=== PATIENT | female | born 1950 | race Caucasian/White ===

== ENCOUNTER → 2018-03-01 | Outpatient (CLI) | payer MEDICARE ==
--- NOTE | 2018-03-02 10:23 | MM ---
Reason for exam: screening (asymptomatic). Last mammogram was performed 1 year and 1 month ago. History: Patient is postmenopausal, history of other cancer, and is nulliparous. Benign stereotactic core biopsy of the right breast, February 18, 2002. Core biopsy of the right breast. Physical Findings: A clinical breast exam by your physician is recommended on an annual basis and results should be correlated with mammographic findings. MG 3D Screening Mammo W/Cad Bilateral CC and MLO view(s) were taken. Prior study comparison: January 19, 2017, bilateral MG 3d screening mammo w/cad. September 12, 2015, bilateral MG screening mammo w CAD. The breast tissue is heterogeneously dense. This may lower the sensitivity of mammography. There are benign appearing round calcifications bilaterally. Previous mammotome biopsy in the right breast. There is chronic nodularity bilaterally. There is no discrete abnormality. ASSESSMENT: Benign, BI-RAD 2 RECOMMENDATION: Routine screening mammogram of both breasts in 1 year.
== END ==
LOC: RADMAMWWP 08:10
PROVIDERS: ATTEND Family Medicine
DX: Z12.31 Encounter for screening mammogram for malignant neoplasm of breast (principal)
CPT/HCPCS: 77063; 77067

== ENCOUNTER → 2018-05-21 | Outpatient (CLI) | payer MEDICARE ==
--- NOTE | 2018-05-23 12:21 | MR ---
EXAMINATION TYPE: MR ankle RT wo con DATE OF EXAM: 05/21/2018 COMPARISON: Outside radiographs 05/10/2018 HISTORY: 67-year-old female Pain in right ankle TECHNIQUE: Multiplanar, multisequence images of the right ankle were obtained without IV contrast. FINDINGS: Evaluation of the osseous structures shows degenerative subchondral marrow signal changes particularl y at the second TMT joint and within the medial-middle cuneiform articulation. There is advanced degenerative change along the medial talar dome with severe cartilage loss spanning 1.3 cm wide and 2.5 cm AP with irregularity of the underlying subchondral bony surface and extensive marrow edema and cystic change. These changes are concentrated on the talar side of the joint sugges ting possible osteochondral lesion as the etiology. There is soft tissue replacement in the sinus Tarsi. The tarsal tunnel is clear. Some slightly irregular but intact ATFL fibers are seen. PTFL remains intact and the CFL is visualize d. There is a split tear of the peroneal brevis tendon just below the lateral malleolus spanning 2.0 to 2.5 cm, refer to axial image 14 for patient representative image. Prominent tenosynovial fluid along the plan tar aspect of the peroneus longus which remains intact. Moderate tenosynovial fluid along the supramalleolar posterior tibial tendon and then again near the insertion. The distal posterior tibial tendon is markedly thickened. The adjacent proximal and mid fi bers of the superomedial spring ligament is heterogeneous with mild marrow signal changes at the calc aneal attachment site. The deep posterior fibers of the deltoid ligament appear intact. Some intrinsi c high signal is also noted within the inferolateral plantar longitudinal ligament of the spring liga ment complex. The syndesmosis appears intact. The anterior extensor tendons show no gross abnormality. Mild fusiform thickening of the middle third Achilles tendon measuring up to 9 mm. There is a moderat e-sized plantar calcaneal spur with mild thickening at the origin of the plantar fascia at 7 mm and s ome intrinsic 5 mm high signal change. IMPRESSION: 1. Large chronic osteochondral lesion of the medial talar dome measuring up to 1.3 cm wide and 2.5 cm AP. There is severe irregular cartilage loss and extensive underlying reactive marrow signal changes . 2. Midfoot osteoarthrosis particularly at the second TMT joint and medial-middle cuneiform articulati on. 3. 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 4. Mild to moderate sprains of the superomedial ligament and IPL of the spring ligament complex. Ther e is posterior tibial tenosynovitis and moderate to severe thickening of the posterior tibial tendon insertion. 5. Peroneal tenosynovitis with a 2.0 to 2.5 cm long split tear of the peroneus brevis at and just bel ow the lateral malleolus. 6. Chronic versus low-grade ATFL sprain. 7. Mild Achilles tendinosis of the middle third fibers. Moderate sized plantar calcaneal spur and thi ckening at the origin of the plantar fascia which may be seen in the setting of plantar fasciitis.
== END | disposition home or self-care (01) ==
LOC: RADMRIMAIN 14:36
PROVIDERS: ATTEND Orthopaedic Surgery
DX: M19.071 Primary osteoarthritis, right ankle and foot (principal); S93.491A Sprain of other ligament of right ankle, initial encounter; S96.811A Strain of other specified muscles and tendons at ankle and foot level, right foot, initial encounter; M94.8X7 Other specified disorders of cartilage, ankle and foot; M65.9 Synovitis and tenosynovitis, unspecified; M77.31 Calcaneal spur, right foot

== ENCOUNTER → 2019-05-02 | Outpatient (CLI) | payer MEDICARE ==
--- NOTE | 2019-05-03 10:44 | MM ---
Reason for exam: screening (asymptomatic). Last mammogram was performed 1 year and 2 months ago. History: Patient is postmenopausal, history of other cancer, and is nulliparous. Benign stereotactic core biopsy of the right breast, February 18, 2002. Core biopsy of the right breast. Physical Findings: A clinical breast exam by your physician is recommended on an annual basis and results should be correlated with mammographic findings. MG 3D Screening Mammo W/Cad Bilateral CC and MLO view(s) were taken. Prior study comparison: March 01, 2018, bilateral MG 3d screening mammo w/cad. January 19, 2017, bilateral MG 3d screening mammo w/cad. There are benign appearing round oval circumscribed bilateral masses greater in the left breast, waxing and waning over prior exams most mammographically compatible with cysts. Benign appearing bilateral calcifications. No suspicious abnormality. Right biopsy marker noted. No significant changes when compared with prior studies. ASSESSMENT: Benign, BI-RAD 2 RECOMMENDATION: Routine screening mammogram of both breasts in 1 year.
== END | disposition home or self-care (01) ==
LOC: RADMAMWWP 07:20
PROVIDERS: ATTEND Family Medicine
DX: Z12.31 Encounter for screening mammogram for malignant neoplasm of breast (principal)
CPT/HCPCS: 77063; 77067

== ENCOUNTER 2019-11-26 15:30 | Emergency (ER) | payer OTHER, MEDICARE ==
[2019-11-26 15:42] VITALS: TEMP 98.6
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
[2019-11-26 17:35] VITALS: BP 142/85; PULSE 77; RESP 18
== END 2019-11-26 17:45 | disposition home or self-care (01) ==
LOC: EC 15:30
DX: S81.812A Laceration without foreign body, left lower leg, initial encounter (principal); S81.811A Laceration without foreign body, right lower leg, initial encounter; Z53.29 Procedure and treatment not carried out because of patient's decision for other reasons; V89.2XXA Person injured in unspecified motor-vehicle accident, traffic, initial encounter; Y92.89 Other specified places as the place of occurrence of the external cause
CPT/HCPCS: 71046; 99284

== ENCOUNTER → 2020-05-07 | Outpatient (CLI) | payer MEDICARE ==
--- NOTE | 2020-05-08 08:51 | MM ---
Reason for exam: screening (asymptomatic). Last mammogram was performed 1 year ago. History: Patient is postmenopausal, has history of other cancer at age 64, and is nulliparous. Benign stereotactic core biopsy of the right breast, February 18, 2002. Core biopsy of the right breast. Physical Findings: A clinical breast exam by your physician is recommended on an annual basis and results should be correlated with mammographic findings. MG 3D Screening Mammo W/Cad Bilateral CC and MLO view(s) were taken. Prior study comparison: May 02, 2019, bilateral MG 3d screening mammo w/cad. March 01, 2018, bilateral MG 3d screening mammo w/cad. There are scattered fibroglandular densities. Previous mammotome biopsy in the right breast. There is chronic nodularity bilaterally. No significant changes when compared with prior studies. ASSESSMENT: Benign, BI-RAD 2 RECOMMENDATION: Routine screening mammogram of both breasts in 1 year.
== END | disposition home or self-care (01) ==
LOC: RADMAMWWP 07:07
PROVIDERS: ATTEND Family Medicine
DX: Z12.31 Encounter for screening mammogram for malignant neoplasm of breast (principal)
CPT/HCPCS: 77063; 77067

== ENCOUNTER → 2021-01-24 | Outpatient (CLI) | payer MEDICARE | END | disposition home or self-care (01) | LOC: LABPAT 10:16 | PROVIDERS: ATTEND Orthopaedic Surgery | DX: Z01.812 Encounter for preprocedural laboratory examination (principal); M17.12 Unilateral primary osteoarthritis, left knee; Z22.322 Carrier or suspected carrier of Methicillin resistant Staphylococcus aureus | CPT/HCPCS: 87070 ==

== ENCOUNTER 2021-02-19 11:06 | Day surgery (SDC) | payer MEDICARE ==
[2021-02-15 10:49] VITALS: BMI 44.8
--- NOTE | 2021-02-18 09:24 | HP ---
HISTORY AND PHYSICAL CHIEF COMPLAINT: Left knee pain. HISTORY OF PRESENT ILLNESS: The patient is a 70-year-old retired female who presents with left knee pain that has progressed over the past several years. She has medial and posterior pain along with swelling and stiffness. She notes the knee locks and danika on her. It bothers her with daily activities. She has tried previous medications in addition to injections and weight loss along with home exercise, without much relief. She notes significant limitation. PAST MEDICAL HISTORY: Significant for reflux disease and hypertension. PAST SURGICAL HISTORY: Significant for fixation of a wrist fracture along with hysterectomy. CURRENT MEDICATIONS: Prilosec, lisinopril. ALLERGIES: SHE DENIES DRUG ALLERGIES. FAMILY HISTORY: Significant for cancer. SOCIAL HISTORY: Negative for current tobacco or alcohol use. REVIEW OF SYSTEMS: Sixteen-point review of systems otherwise reviewed and is noncontributory. PHYSICAL EXAMINATION: The patient is approximately 5 feet 2 inches, 245 pounds of endomorphic habitus. HEENT exam is nonfocal. Neck is supple. She has painless passive motion of her left hip. Straight-leg raise is negative. Active motion of left knee minus 12 to 110 degrees of flexion. She has a mild effusion. She is tender about the medial joint line. Collaterals are stable. Pavel is negative. Marlen's is equivocal. She has genu varum alignment. She has an antalgic gait pattern. Her distal neurovascular exam appears intact in the left lower extremity. Weightbearing notch, lateral and Merchant views of the left knee obtained in the office show severe medial and patellofemoral compartment narrowing with [id number] changes and subchondral sclerosis. IMPRESSION: 1. Left knee severe medial and patellofemoral compartment osteoarthrosis. 2. Increased body mass index. RECOMMENDATIONS: I talked to the patient at length regarding her condition along with treatment options. At this point she remains quite symptomatic and limited because of pain related to her osteoarthrosis despite previous conservative measures. After thorough discussion, she opted to proceed with surgery. We will plan to proceed with left total knee arthroplasty. Risks and benefits were discussed at length in layman's terms. We will institute DVT prophylaxis postoperatively. MMODL / IJN: [id number] /
[~2021-02-19 11:06] MED LIST: ACETAMINOPHEN TAB 500 MG TAB PO PRN; DEXAMETHASONE SOD PHOSPHATE 4 MG/ML 1 ML VIAL IV ONE; HYDROmorphone 0.5 MG/0.5 ML SYRINGE IVP PRN; LIDOCAINE 1% (10MG/ML) FOR IV START INTRADERMA PRN; MELOXICAM 7.5 MG TAB PO PRN; ONDANSETRON 4 MG/2 ML VIAL IVP ONE; ROPIVACAINE/EPI/CLONIDINE/KET 50 ML SYRINGE MISCELLANE PRN; TRANEXAMIC ACID 1,000 MG in SODIUM CHLORIDE 0.9% 100 ML IVPB PRN
[2021-02-19] MEDS: LACTATED RINGERS 1,000 ML IV SCH ×2 (12:08→19:02)
[2021-02-19] MEDS ORDERED: fentaNYL (PF) 50 MCG/ML 2 ML AMP IVP ONE (12:23)
[2021-02-19] MEDS ORDERED: MIDAZOLAM 2 MG/2 ML VIAL IVP ONE (12:23)
[2021-02-19] MEDS ORDERED: ROPIVACAINE 5 MG/ML 30 ML VIAL ONE (12:53)
[2021-02-19] MEDS ORDERED: fentaNYL (PF) 50 MCG/ML 2 ML AMP ONE (12:53)
[2021-02-19] MEDS ORDERED: KETAMINE 10 MG/ML 20 ML VIAL ONE (12:53)
[2021-02-19] MEDS ORDERED: PROPOFOL 10 MG/ML 20 ML VIAL IV ONE (12:53)
[2021-02-19] MEDS ORDERED: SODIUM CHLORIDE 0.9% 100 ML BAG ONE (12:53)
[2021-02-19] MEDS ORDERED: TRANEXAMIC ACID 1,000 MG/10 ML VIAL ONE (12:53)
[2021-02-19] MEDS ORDERED: MIDAZOLAM 2 MG/2 ML VIAL ONE (12:53)
--- NOTE | 2021-02-19 12:54 | P.ANPRN ---
Procedure Note - Anesthesia - Nerve Block Performed Left Adductor Canal Infusion Date of Procedure: 02/19/21 Procedure Start Time: 12:22 Procedure Stop Time: 12:35 Location of Patient: PreOp Indication: Acute Post-Operative Pain, Requested by Surgeon Sedation Type: Sedate with meaningful contact maintained Preparation: Sterile Prep, Sterile Dressing Position: Supine Catheter: Indwelling Needle Types: Pajunk Needle Gauge: 21 Ultrasound used to visualize needle placement: Yes Ultrasound used to observe medication spread: Yes Blood Aspirated: No Pain Paresthesia on Injection Noted: No Resistance on Injection: Normal Image Stored and Saved: Yes Events: Uneventful and Well Tolerated (ropi .5% 20cc)
--- NOTE | 2021-02-19 12:55 | P.ANPRN ---
Procedure Note - Anesthesia - Nerve Block Performed Left iPack Single Time Out Performed: Yes Date of Procedure: 02/19/21 Procedure Start Time: 12:36 Procedure Stop Time: 12:39 Location of Patient: PreOp Indication: Acute Post-Operative Pain, Requested by Surgeon Sedation Type: Sedate with meaningful contact maintained Preparation: Sterile Prep Position: Supine Needle Types: Pajunk Needle Gauge: 21 Ultrasound used to visualize needle placement: Yes Ultrasound used to observe medication spread: Yes Blood Aspirated: No Pain Paresthesia on Injection Noted: No Resistance on Injection: Normal Image Stored and Saved: Yes Events: Uneventful and Well Tolerated (ropi .5% 20cc)
[2021-02-19] MEDS ORDERED: ceFAZolin 1,000 MG in SODIUM CHLORIDE 0.9% 1,000 ML IRRIGATION ONE (13:30)
[2021-02-19] MEDS ORDERED: LACTATED RINGERS 1,000 ML IV ONE (13:50)
[2021-02-19] MEDS ORDERED: NALOXONE 0.4 MG/ML 1 ML VIAL IV PRN (14:24)
[2021-02-19] MEDS ORDERED: HYDROcodone/APAP 5-325MG 1 EACH TAB PO PRN (14:24)
[2021-02-19] MEDS ORDERED: HYDROcodone/APAP 7.5-325MG 1 EACH TAB PO PRN (14:24)
[2021-02-19] MEDS ORDERED: MORPHINE SULFATE 2 MG/ML SYRINGE IVP PRN (14:24)
--- NOTE | 2021-02-19 14:57 | P.OP ---
Date of Procedure: 02/19/21 Preoperative Diagnosis: Left knee severe tricompartmental osteoarthrosis Postoperative Diagnosis: Same Procedure(s) Performed: Left total knee arthroplasty just cementedposterior stabilized Implants: Depuy Attune size 5 cemented femoral component, size 4 cemented tibial component, 9 mm articular surface, 32 mm cemented patellar component. This is a posterior stabilized implant. Anesthesia: regional, spinal Surgeon: Danny Payan Stone Cutter #1: Saravanan Michael Estimated Blood Loss (ml): 50 Pathology: other (Bone fragments) Condition: stable Disposition: PACU Indications for Procedure: Patient is a 70-year-old female who presents with progressive left knee pain secondary to osteoarthrosis despite conservative treatment. A discussion of the risks and benefits of operative intervention versus continued conservative me asures with patient. She opted to proceed with surgery. Operative risks to include infection, neurovascular injury, development of blood clots, possible component loosening/failure and need for subsequent procedures was discussed. Informed consent was obtained. Operative Findings: As below Description of Procedure: The patient was brought to the operating room, and after induction of spinal anesthesia the left lower extremity was prepped and draped in a normal fashion. The tourniquet was inflated to 270 mm marker. A longitudinal incision extending 3 finger breaths above the superior pole of patella extending to the medial aspect the tibial tubercle was then made. The skin and subcutaneous tissues were divided sharply. Electrocautery was used for hemostasis. A medial parapatellar arthrotomy was performed. The medial soft tissues to include the superficial and deep portions of the medial collateral ligament were elevated subperiosteally. The patella was everted. A portion of the retropatellar fat pad was excised sharply. The anterior cruciate ligament was sacrificed. Blunt retractors were placed. A starting hole was made in the distal femur 1 cm anterior to the posterior cruciate ligament origin. An intramedullary femoral guide was then inserted planning on 5 valgus distal cut with 9 mm distal resection. The cutting block was pinned in place. The distal cut was then made. The posterior referencing sizing guide was utilized. I felt size 5 was most appropriate. 3 of external rotation was built into the system and verified off the trans-epicondylar axis and the posterior condyles. The cutting block was pinned in place. The anterior, posterior, and chamfer cuts then made. Bone fragments were removed. The intercondylar guide was placed and the notch cut was made with a sagittal saw. The bone block was removed in one fragment. The trial component was then placed. There is good anterior to posterior and medial to lateral fit. The distal peg holes were drilled. The trial component was removed. Attention was then paid towards preparing the proximal femur. An extra medullary guide was utilized in line with the tibial shaft and second metatarsal distally. I planned on 2 mm resection from the medial compartment. The cutting block was pinned in place. The proximal tibial cut was then made. The bone was removed in one fragment. The remnants of the medial and lateral menisci were excised at the capsular junction with electrocautery. The tibia sized most appropriately at size 4. The trial femoral and tibial components were placed along with a 9 mm articular surface. I was able to obtain full flexion and extension with internal and external rotation. After several flexio n and extension cycles, the tibial rotation was marked with electrocautery line with the medial one third of the tibial tubercle. Attention was then paid towards preparing the patella. A patella reamer was utilized taking stem to 14 mm of bone stock. A good flush cut was made. The patella sized most appropriately 32 mm. The peg holes were drilled. The trial components placed. I had good patellofemoral tracking with no hands technique. The trial components were then removed. The tibia was prepared in the appropriate rotation with appropriate drill and keel punch. The posterior osteophytes were removed with a curved osteotome. The flexion and extension gaps were checked and felt to be symmetric at 9 mm. A trial components were then removed. The bony surfaces were prepared with pulsatile lavage and dried. The tibial component was then cemented place was fully seated. Excess cement was removed. The femoral component cemented place and was fully seated. Excess cement was removed. The trial 9 mm articular surface was placed and the knee was put in full extension. The patella component was cemented place. After the cement had sufficiently hardened, the knee was again taken through a range of motion. Again I was able to obtain full flexion and extension with varus and valgus stress. The trial 9 mm articular surface was removed and the final one inserted. This was fully seated. Care was taken to avoid any soft tissue interposition. Pulsatile lavage was again utilized. The medial parapatellar arthrotomy was closed with #2 Ethibond suture. The tourniquet was deflated with approximately 60 minutes total tourniquet time. Final hemostasis was obtained with the cautery. There was minimal bleeding therefore a deep drain was not placed. The subcutaneous tissues were reapproximated with interrupted 2-0 Vicryl sutures. The skin was reapproximated with 3-0 subcuticular strata fix suture. Skin tape and adhesive was applied. A sterile dressing was applied. The patient was awoken from sedation and transferred to recovery room in good condition. Blood loss was estimated at 50 mL. No complications were incurred. Sponge and needle counts were correct at the end of the case. Luis Daniel GLASGOW assisted during the major components of this case to include exposure, bone resection, implantation, and closure.
[2021-02-19] MEDS ORDERED: ROPIVACAINE 0.2%-NS ON-Q PUMP 1,090 MG, EMPTY PAIN BALL 1 EACH MISCELLANE PRN (15:03)
--- NOTE | 2021-02-19 15:47 | XR ---
EXAMINATION TYPE: XR knee limited LT DATE OF EXAM: 02/19/2021 CLINICAL HISTORY: Left knee pain and arthritis status post total knee replacement. TECHNIQUE: Portable AP and crosstable lateral views of the left knee are obtained immediately postop eratively. COMPARISON: Bilateral knee x-rays November 26, 2019 FINDINGS: Metallic hardware from total left knee arthroplasty is seen and appears satisfactory in al ignment and position. There is evidence of recent surgery with diffuse subcutaneous gas and soft tis jaqueline swelling noted. IMPRESSION: METALLIC HARDWARE FROM TOTAL LEFT KNEE ARTHROPLASTY IS SATISFACTORY IN ALIGNMENT.
[2021-02-19] MEDS ORDERED: SENNOSIDES-DOCUSATE SODIUM 1 EACH TAB PO SCH (21:00)
[2021-02-19] MEDS: ENOXAPARIN 30 MG/0.3 ML SYRINGE SQ SCH (22:17)
[2021-02-20 07:12] VITALS: RESP 17
[2021-02-20 07:46] LABS: Basophils % (A) 0 %; Eosinophils # (A) 0.1 k/uL (0-0.7); Eosinophils % (A) 0 %; HCT 38.3 % (34.0-46.0); HGB 13.4 gm/dL (11.4-16.0); Lymphocytes # (A) 1.4 k/uL (1.0-4.8); Lymphocytes % (A) 10 %; MCH 29.7 pg (25.0-35.0); Mean Platelet Volume 9.5; Monocytes # (A) 0.7 k/uL (0-1.0); Monocytes % (A) 5 %; Neutrophils # (A) 12.6 k/uL (1.3-7.7); Neutrophils % (A) 85 %; Platelet Count 252 k/uL (150-450); RBC 4.51 m/uL (3.80-5.40); RDW 13.5 % (11.5-15.5); WBC 14.8 k/uL (3.8-10.6)
[2021-02-20] MEDS: ENOXAPARIN 30 MG/0.3 ML SYRINGE SQ SCH (08:50)
--- NOTE | 2021-02-20 09:27 | P.PN ---
Progress Note - Text Progress Note Date: 02/20/21 (708) Anesthesiology Postop day 1 status post total knee arthroplasty with adductor canal catheter. Patient doing well. VAS 0 out of 10. Gross strength intact in lower extremity. Afebrile. Denies alterations in sensorium. Catheter site intact. Heart regular rate Lungs nonlabored Abdomen nondistended Assessment: Postop day 1 status post total knee arthroplasty with adductor canal catheter Plan: All questions answered. Maintain catheter 2 more days with patient removal at home. Instructions were given at discharge.
--- NOTE | 2021-02-20 10:22 | P.DS ---
Providers Date of admission: 02/19/2021 Expected date of discharge: 02/20/21 Attending physician: Danny Payan Consults: 02/19/21 14:28 Consult Physician Routine Consulting Provider: Sebastien Vitale Reason/Comments: Medical Management s/p left total knee arthroplasty Do you want consulting provider notified?: Yes Primary care physician: Sebastien Vitale Hospital Course: Date of admission: 02/19/2021 Date of discharge: 02/20/2021 Admission diagnosis: Left knee osteoarthritis Discharge diagnosis: Same Attending physician: Dr. Payan Surgical procedures: Left total knee arthroplasty Brief history: Patient is a 70-year-old female with a history of progressive primary left knee osteoarthritis. At this point patient has failed conservative treatment measures and has opted to proceed with a elective left total knee arthroplasty. Hospital course: Details of patient's surgery can be found in operative report. Patient tolerated the procedure well and was subsequently transported to orthopedic floor. Patient's orthopeidc and medical care was provided daily. Patient had daily laboratory tests performed for evaluation of overall blood counts. Patient had daily physical therapy to include strengthening range of motion as well as education with walker ambulation. Patient was treated with Lovenox for their postoperative DVT prophylaxis during their inpatient stay. Patient was noted to have a relatively uneventful postoperative course. Patient reported satisfactory pain control with oral pain medications by postoperative day 1. Patient showed satisfactory progress with physical therapy. Patient moved steadily through the program and had no difficulty meeting the goals by postoperative day 1. Given patient's otherwise satisfactory course and having met physical therapy goals, plan is to discharge patient home on postoperative day 1. Discharge condition/disposition: Patient will be discharged home in stable condition. Discharge medications: Instructions are given on resumption of patient's normal daily medications per primary care recommendation, in addition patient will be prescribed [place] 5 mg/325 mg; Colace; Eliquis 2.5 mg BID x 2 weeks. Discharge instructions: 1. Wound care and infection precautions, keep incision dry and covered while showering, no lotions, creams, moisturizers. No soaking, tubs, pools, hottubs. Do not scrub over the incision. 2. Weight-bear as tolerated with walker / cane until follow-up. 3. Ice and elevate when necessary. Do not exceed 20 minutes per hour with ice pack. 4. Utilize compression sleeve until seen at first follow up appointment. 5. Visiting nursing care. 6. Home physical therapy including home CPM. 7. Pain meds and anticoagulants per prescription. 8. Pain medication has potential to cause constipation. Increase oral fluid and fiber intake. Contact primary care provider if you have not had a bowel movement within 48 hours after discharge 9. No anti-inflammatory medication until discussed at first post operative visit, this including Motrin, Aleve, Mobic, Diclofenac. 10. Follow up in office at 2 weeks postop with Luis Daniel Michael PA-C / Dedrick Simpson PA-C 11. Follow up with your primary care doctor 7-10 days after discharge. 12. Contact [facility] with any questions, . While showering, placed Saran wrap over exofin fusion tape/mesh tape. Keep mesh tape on until follow-up appointment in 2 wks Assessment: Left knee osteoarthritis Procedures: Left total knee arthroplasty Patient Condition at Discharge: Good Plan - Discharge Summary Discharge Rx Participant: Yes New Discharge Prescriptions: New Docusate [Colace] 100 mg PO DAILY #30 capsule Apixaban [Eliquis] 2.5 mg PO BID #60 tab HYDROcodone/APAP 5-325MG [[place] 5-325] 1 tab PO Q6HR PRN #36 tab PRN Reason: Pain No Action Omeprazole [PriLOSEC] 20 mg PO AC-BRKFST Lisinopril-Hctz 10-12.5 mg [Zestoretic 10-12.5] 1 tab PO DAILY Cholecalciferol (Vitamin D3) [Vitamin D3 (125 MCG = 5,000 IU)] 125 mcg PO DAILY Discharge Medication List Cholecalciferol (Vitamin D3) [Vitamin D3 (125 MCG = 5,000 IU)] 125 mcg PO DAILY 02/15/21 [History] Lisinopril-Hctz 10-12.5 mg [Zestoretic 10-12.5] 1 tab PO DAILY 02/15/21 [History] Omeprazole [PriLOSEC] 20 mg PO AC-BRKFST 02/15/21 [History] Apixaban [Eliquis] 2.5 mg PO BID #60 tab 02/20/21 [Rx] Docusate [Colace] 100 mg PO DAILY #30 capsule 02/20/21 [Rx] HYDROcodone/APAP 5-325MG [[place] 5-325] 1 tab PO Q6HR PRN #36 tab 02/20/21 [Rx] Follow up Appointment(s)/Referral(s): Dedrick Simpson, PAC [PHYSICIAN AUDIO VISUAL FACILITIES ENGINEER] - 03/07/21 9:40 am [facility],Equ[facility] [NON-STAFF] - (*Please call [facility] once home to arrange delivery of the Continuous Passive Motion (CPM) machine. ) [facility] [NON-STAFF] - ([facility] will call you to schedule your home care/home physical therapy visits. ) Patient Instructions/Handouts: Knee Replacement (GEN) Discharge Disposition: HOME WITH HOME HEALTH SERVICES
--- NOTE | 2021-02-20 11:04 | P.PN ---
Subjective Progress Note Date: 02/20/21 Principal diagnosis: Left knee osteoarthritis Patient was seen at bedside this morning resting comfortably sitting in chair icing knee. Patient says she did get up with physical therapy this morning and it went well. Patient mentions she walked around the [place] and up-and-down a couple steps. Patient says she has not had a bowel movement yet. Patient says she has used incentive spirometer throughout this morning. Patient states mostly pain in her knee is on the front backside of her knee. Patient feels that she is ready to go home today. Patient denies chest pain, fever, shortness of breath, nausea, vomiting, change in vision, loss of bowel/bladder control. Objective - Vital Signs Vital signs: Vital Signs Temp 97.4 F L 02/20/21 07:11 Pulse 63 02/20/21 07:11 Resp 17 02/20/21 07:11 BP 115/75 02/20/21 07:11 Pulse Ox 98 02/20/21 07:28 Intake & Output 02/19/21 02/20/21 02/20/21 18:59 06:59 18:59 Intake Total 1651 240 Output Total 50 Balance 1601 240 Weight 112.3 kg Intake: IV 1651 Oral 240 Output: Estimated Blood Loss 50 Other: # Voids 0 3 - Exam Left knee: Incision is clean, dry, and intact. The exofin fusion tape is in good condition. There is minimal soft tissue swelling and ecchymosis surrounding the medial and lateral aspects of the incision. Calf is soft, no tenderness with palpation. Plantar flexion, dorsiflexion, EHL, FHL are intact. Sensory exam to light touch throughout the extremity is intact, dorsal pedis pulses 2+. - Labs CBC & Chem 7: 02/20/21 06:17 Labs: Abnormal Lab Results - Last 24 Hours (Table) 02/20/21 Range/Units 06:17 WBC 14.8 H (3.8-10.6) k/uL Neutrophils # 12.6 H (1.3-7.7) k/uL Assessment and Plan Assessment: Postoperative day 1 status post left total knee arthroplasty Plan: 1. Right knee osteoarthritis - left total knee arthroplasty performed yesterday, 02/19/2021. Patient stable this morning. Plan discharge home today with health services. 2. Appreciate medical management 3. Pain management - going home with [place] 5 mg/325 mg 4. GI prophylaxis - going home with Colace 100 mg 5. DVT prophylaxis - going home with Eliquis 2.5 mg BID x 2 weeks 6. PT/OT - weightbearing as tolerated with walker for assistance 7. Encourage incentive spirometer use 8. Discharge planning - plan discharge home today with health services. Time with Patient: Less than 30
[2021-02-20 12:23] VITALS: BP 113/73; PULSE 80; TEMP 97.6
--- NOTE | 2021-02-20 13:19 | P.CONS ---
History of Present Illness - Reason for Consult Consult date: 02/20/21 Medical management hypertension, gastroesophageal reflux disease Requesting physician: Danny Payan - Chief Complaint Severe osteoarthrosis of left knee, status post total left knee arthroplast - History of Present Illness This is 70-year-old female with severe left knee osteoarthrosis, failed conservative treatment, status post left total knee arthroplasty. Patient has past medical history of gastroesophageal reflux disease, osteoarthritis, hypertension, basal cell skin CA, uterine carcinoma in situ and multiple other medical issues. Vital signs stable, maintaining O2 sats in the 90s on room air. Afebrile, WBC 14.8. Hemoglobin 13.4, platelets 252. Denies nausea vomiting or diarrhea. Passing flatus. Pain currently controlled. Denies chest pain, palpitations or shortness of breath. PT pending. Review of Systems Constitutional: Denied any fatigue denied any fever. Cardio vascular: denied any chest pain, palpitations Gastrointestinal denied any nausea vomiting Pulmonary: Denied any shortness of breath cough Neurologic denied any new focal deficits ROS Statement: Those systems with pertinent positive or pertinent negative responses have been documented in the HPI. ROS Other: All systems not noted in ROS Statement are negative. Past Medical History Past Medical History: Cancer, GERD/Reflux, Hypertension, Osteoarthritis (OA) Additional Past Medical History / Comment(s): basal cell skin cancer, uterine carcinoma in situ, hit by a branch recently while trimming tree & as a right black eye History of Any Multi-Drug Resistant Organisms: None Reported Past Surgical History: Hernia Repair, Hysterectomy, Orthopedic Surgery, Tonsillectomy Additional Past Surgical History / Comment(s): hernia repair as a baby, ORIF left wrist Past Anesthesia/Blood Transfusion Reactions: No Reported Reaction Past Psychological History: No Psychological Hx Reported Smoking Status: Never smoker Past Alcohol Use History: None Reported Past Drug Use History: None Reported - Past Family History Mother Family Medical History: No Reported History Medications and Allergies Home Medications Medication Instructions Recorded Confirmed Type Cholecalciferol (Vitamin D3) 125 mcg PO DAILY 02/15/21 02/19/21 History [Vitamin D3 (125 MCG = 5,000 IU)] Lisinopril-Hctz 10-12.5 mg 1 tab PO DAILY 02/15/21 02/19/21 History [Zestoretic 10-12.5] Omeprazole [PriLOSEC] 20 mg PO AC-BRKFST 02/15/21 02/19/21 History Apixaban [Eliquis] 2.5 mg PO BID #60 tab 02/20/21 Rx Docusate [Colace] 100 mg PO DAILY #30 capsule 02/20/21 Rx HYDROcodone/APAP 5-325MG [[place] 1 tab PO Q6HR PRN #36 tab 02/20/21 Rx 5-325] Allergies Allergy/AdvReac Type Severity Reaction Status Date / Time No Known Allergies Allergy Verified 02/19/21 12:07 Physical Exam Vitals: Vital Signs Temp Pulse Pulse Resp BP Pulse Ox 02/20/21 12:22 80 17 02/20/21 12:21 97.6 F 80 17 113/73 94 L 02/20/21 07:28 98 02/20/21 07:11 97.4 F L 63 17 115/75 98 02/20/21 02:27 97.5 F L 74 16 102/63 96 02/19/21 20:04 97.6 F 85 17 152/94 97 02/19/21 20:00 74 74 16 02/19/21 17:30 74 14 128/60 98 02/19/21 17:24 76 16 149/68 97 02/19/21 17:00 70 16 136/63 97 02/19/21 16:45 71 16 127/64 98 02/19/21 16:15 68 16 128/63 90 L 02/19/21 16:00 71 16 126/64 91 L 02/19/21 15:42 66 16 129/64 91 L 02/19/21 15:27 71 16 136/68 96 02/19/21 15:12 69 16 122/65 100 02/19/21 14:57 97.7 F 71 16 127/73 99 Intake and Output 02/19/21 02/20/21 02/20/21 22:59 06:59 14:59 Intake Total 0 240 Balance 0 240 Intake: IV 0 Oral 240 Other: Voiding Method Toilet # Voids 0 3 Weight 112.3 kg PHYSICAL EXAM: VITAL SIGNS: As above GENERAL: Sitting up in bed, no acute distress HEENT: Conjunctivae normal. eyes normal. Oral mucosa moist NECK: No JVD. No thyroid enlargement. No LNs CARDIOVASCULAR: S1, S2 regular.. No murmur RESPIRATION: Breath sounds diminished in the bases. No rhonchi or crackles. No bronchial breathing. ABDOMEN: Soft, nontender . No guarding. no masses palpable. No ascites, No hepatosplenomegaly.Bowel sounds heard. LEGS: Left lower extremity dressing clean dry and intact with minimal ecchymosis/edema, positive DP pulse. PSYCHIATRY: Alert and oriented X3, mood and affect normal. NERVOUS SYSTEM: Cranial N 2-12 grossly normal. Moves all 4 limbs. No focal deficits. Strength and sensation grossly intact. Skin: warm and dry, no rash Results CBC & Chem 7: 02/20/21 06:17 Labs: Abnormal Lab Results - Last 24 Hours (Table) 02/20/21 Range/Units 06:17 WBC 14.8 H (3.8-10.6) k/uL Neutrophils # 12.6 H (1.3-7.7) k/uL Assessment and Plan Assessment: left knee osteoarthritis, failed conservative treatment, status post left total knee arthroplasty Hypertension Gastroesophageal reflux disease Leukocytosis, mild, suspect reactive Plan: Continue on current medication regime ,monitoring and symptomatic treatment. Aggressive pulmonary toileting with incentive spirometer reinforced. PT pending. Discharge planning in progress for today as per orthopedic surgery. Follow-up with PCP in 1 week, Dr. Vitale. Thank you Dr. Payan for the consult. The impression and plan of care has been dictated as directed. : I performed a history and examination of this patient, discussed the same with the dictator. I agree with the dictator's note ,documented as a scribe. Any additional findings or plans will be noted.
== END 2021-02-20 13:30 | disposition home health service (06) ==
LOC: OR 11:06 → 4SSUR 17:32 → OR 02-20 13:30
PROVIDERS: ATTEND Orthopaedic Surgery
DX: M17.12 Unilateral primary osteoarthritis, left knee (principal); K21.9 Gastro-esophageal reflux disease without esophagitis; I10 Essential (primary) hypertension; Z20.822 Contact with and (suspected) exposure to COVID-19; Z90.710 Acquired absence of both cervix and uterus; Z79.899 Other long term (current) drug therapy; Z80.9 Family history of malignant neoplasm, unspecified
CPT/HCPCS: 27447; 94760; 97161; 64999; 64448; 76942; 88305; 85025; 88311; 87635; 73560; C1713 ×2; C1776; J2250; J1100; J0690 ×3; J2405; J3010; J1650 ×2; J2795 ×2; J2704; J1170

== ENCOUNTER → 2021-05-13 | Outpatient (CLI) | payer MEDICARE ==
--- NOTE | 2021-05-13 13:33 | MM ---
Reason for exam: screening (asymptomatic). Last mammogram was performed 1 year ago. History: Patient is postmenopausal, has history of other cancer at age 64, and is nulliparous. Benign stereotactic core biopsy of the right breast, February 18, 2002. Core biopsy of the right breast. Physical Findings: A clinical breast exam by your physician is recommended on an annual basis and results should be correlated with mammographic findings. MG 3D Screening Mammo W/Cad Bilateral CC and MLO view(s) were taken. Prior study comparison: May 07, 2020, bilateral MG 3d screening mammo w/cad. May 02, 2019, bilateral MG 3d screening mammo w/cad. There are scattered fibroglandular densities. There are benign appearing round calcifications bilaterally. Previous mammotome biopsy in the right breast. There is chronic nodularity bilaterally. There is no discrete abnormality. ASSESSMENT: Benign, BI-RAD 2 RECOMMENDATION: Routine screening mammogram of both breasts in 1 year.
== END | disposition home or self-care (01) ==
LOC: RADMAMWWP 07:20
PROVIDERS: ATTEND Family Medicine
DX: Z12.31 Encounter for screening mammogram for malignant neoplasm of breast (principal); Z78.0 Asymptomatic menopausal state
CPT/HCPCS: 77063; 77067

== ENCOUNTER 2022-07-29 06:58 | Day surgery (SDC) | payer MEDICARE ==
[~2022-07-29 06:58] MED LIST changes: -ACETAMINOPHEN TAB 500 MG TAB PO PRN; -DEXAMETHASONE SOD PHOSPHATE 4 MG/ML 1 ML VIAL IV ONE; -HYDROmorphone 0.5 MG/0.5 ML SYRINGE IVP PRN; +LACTATED RINGERS 1,000 ML IV SCH; -MELOXICAM 7.5 MG TAB PO PRN; -ONDANSETRON 4 MG/2 ML VIAL IVP ONE; -ROPIVACAINE/EPI/CLONIDINE/KET 50 ML SYRINGE MISCELLANE PRN; -TRANEXAMIC ACID 1,000 MG in SODIUM CHLORIDE 0.9% 100 ML IVPB PRN
[2022-07-29 07:30] VITALS: TEMP 98.9
[2022-07-29] MEDS ORDERED: PROPOFOL 10 MG/ML 20 ML VIAL IV ONE (08:26)
[2022-07-29] MEDS ORDERED: LIDOCAINE 2% INJ 20 MG/ML (2 ML VIAL) ONE (08:26)
--- NOTE | 2022-07-29 08:51 | P.PCN ---
Date of Procedure: 07/29/22 Procedure(s) Performed: Brief history: Patient is a pleasant 71-year-old white female scheduled for an elective upper endoscopy as well as colonoscopy as a part of evaluation of GERD and screening for colon cancer Procedure performed: Esophagogastroduodenoscopy with biopsy Colonoscopy with biopsy Preoperative diagnosis: GERD Screening for colon cancer Anesthesia: MAC Procedure: After informed consent was obtained from the patient was brought into the endoscopy unit and IV sedation was administered by anesthesia under continuous monitoring. Initially upper endoscopy was done. The Olympus GF 160 video endoscope was inserted inserted into the mouth and esophagus intubated without any difficulty and was gradually advanced into the stomach and duodenum and carefully examined. The bulb and second part of the duodenum appeared normal. The scope was then withdrawn into the stomach adequately insufflated with air and upon careful examination the antrum and body, cardia and fundus appeared normal. Multiple gastric polyps noted which were biopsied. The scope was then withdrawn into the esophagus. Small hiatal hernia noted. The GE junction was located at 40 cm to the incisors. It appeared slightly irregular with no erythema erosions or ulcerations. Rest of the esophagus appeared normal. Patient tolerated the procedure well. At this time the patient continued to remain sedation. Initial digital rectal examination was normal. Olympus CF 160 video colonoscope was then inserted into the rectum and gradually advanced to the cecum without any difficulty. Careful examination was performed as the scope was gradually being withdrawn. The prep was excellent. The cecum, ascending colon, transverse colon, descending colon appeared normal. In the sigmoid colon there was a 3-4 mm polyp that was removed by cold biopsy. Rest of the, sigmoid colon and rectum appeared normal. R etroflexion was performed in the rectum and no lesions were noted. Patient tolerated the procedure well. Impression: 1. Upper endoscopy revealed multiple gastric polyps and small hiatal hernia 2. Colonoscopy revealed 3-4 mm sessile sigmoid: Polyp status post cold biopsy. Rest of the colon appeared normal Recommendations: Findings of this examination were discussed with the patient as well as her family. She was advised to follow with the biopsy results. She will continue with her current medications and follow antireflux measures. If the biopsy reveals adenoma she can have a repeat colonoscopy in 5 years.
[2022-07-29 09:10] VITALS: BP 135/82; PULSE 75; RESP 18
== END 2022-07-29 09:36 | disposition home or self-care (01) ==
LOC: ORWHC2ENDO 06:58
PROVIDERS: ATTEND Internal Medicine Gastroenterology
DX: Z12.11 Encounter for screening for malignant neoplasm of colon (principal); K63.5 Polyp of colon; K31.7 Polyp of stomach and duodenum; K29.50 Unspecified chronic gastritis without bleeding; K21.9 Gastro-esophageal reflux disease without esophagitis; K44.9 Diaphragmatic hernia without obstruction or gangrene; I10 Essential (primary) hypertension; Z85.42 Personal history of malignant neoplasm of other parts of uterus; Z79.899 Other long term (current) drug therapy
CPT/HCPCS: 45380; 43239; 88305; J2704; J2001

== ENCOUNTER → 2023-06-10 | Outpatient (CLI) | payer MEDICARE ==
--- NOTE | 2023-06-11 15:16 | MM ---
Reason for Exam: Screening (asymptomatic). Last screening mammogram was performed 12 month(s) ago. Patient History: Menarche at age 12. Patient has no children. Left ovary removed at age 34. Right ovary removed at age 34. Hysterectomy at age 34. Postmenopausal. Other cancer, age 64. Core Biopsy on the Right side. 02/18/2002, Benign Stereotactic Core Biopsy on the right side. Risk Values: Lindy 5 year model risk: 3.2%. NCI Lifetime model risk: 8.7%. Prior Study Comparison: 05/07/2020 Bilateral Screening Mammogram, [facility]. 05/13/2021 Bilateral Screening Mammogram, [facility]. 06/09/2022 Bilateral MG 3D screening mammo w/cad, [facility]. Tissue Density: There are scattered fibroglandular densities. Findings: Analyzed By CAD. There is no suspicious group of microcalcifications or new suspicious mass. Benign-appearing calcifications bilaterally. Overall Assessment: Benign, BI-RAD 2 Management: Screening Mammogram of both breasts in [address] [facility] will attempt to contact patient to return for supplemental views and ultrasound if indicated. Patient should continue monthly self-breast exams. A clinical breast exam by your physician is recommended on an annual basis. This exam should not preclude additional follow-up of suspicious palpable abnormalities. Note on Lindy scores and lifetime risk: 1. A Lindy score greater than 3% is considered moderate risk. If this is the case, consider specialist referral to assess eligibility for a risk reducing agent. 2. If overall lifetime risk for the development of breast cancer is 20% or higher, the patient may qualify for future screening with alternating mammogram and breast MRI. Electronically signed and approved by: Logan Strange DO
== END | disposition home or self-care (01) ==
LOC: RADMAMWWP 10:56
PROVIDERS: ATTEND Family Medicine
DX: Z12.31 Encounter for screening mammogram for malignant neoplasm of breast (principal); Z78.0 Asymptomatic menopausal state
CPT/HCPCS: 77063; 77067

== ENCOUNTER → 2024-02-15 | Outpatient (CLI) | payer MEDICARE ==
--- NOTE | 2024-02-15 12:51 | CT ---
EXAMINATION TYPE: CT sinus wo con CT DLP: 418 mGycm, Automated exposure control for dose reduction was used. DATE OF EXAM: 02/15/2024 12:11 PM COMPARISON: None. 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 TECHNIQUE: Multiple thin axial images were obtained through the paranasal sinuses without the use of IV contrast. Additional coronal and sagittal reformatted images were submitted for evaluation. FINDINGS: Frontal sinuses: Normally developed and aerated. Frontal Recess: Clear Maxillary Sinuses: Normally developed and aerated. Maxillary Infundibula(OMC): Clear, . Ethmoid sinuses: Normally developed and aerated. Ethmoidal notch: Supraorbital pneumatization is iden tified. Sphenoid sinuses: Normally developed and aerated. There is sellar sphenoid sinus pneumatization witho ut evidence of dehiscence. No dehiscence of carotid canal. No evidence of optic nerve dehiscence wit hin the sphenoid sinus. Sphenoethmoidal recesses: Clear. Nasal septum: Within normal limits.. Nasal Turbinates: Within normal limits. Mastoid air cells & middle ears: The air cells are clear. The middle ears are grossly unremarkable. Modified Soft tissues & Brain: Partially seen without gross abnormality. Globes are intact. Other: Cribriform plate demonstrates symmetric Keros classification type 2 cribriform plate. No evidence of bony dehiscence of skull base. Lamina papyracea is intact without evidence of remote orbital fracture or orbital prolapse into the e thmoid sinus. Hyperostosis frontalis of the frontal bones. IMPRESSION: 1. No significant mucosal sinus disease. 2. The ostiomeatal units, frontonasal and sphenoethmoidal recesses are clear. [facility], , 02/15/2024 12:49 PM
== END | disposition home or self-care (01) ==
LOC: RADCTMAIN 11:36
PROVIDERS: ATTEND Otolaryngology Sleep Medicine
DX: J32.0 Chronic maxillary sinusitis (principal)
CPT/HCPCS: 70486

== ENCOUNTER → 2024-02-25 | Outpatient (CLI) | payer MEDICARE ==
--- NOTE | 2024-02-25 14:06 | XR ---
EXAMINATION TYPE: XR hand complete 3 views LT DATE OF EXAM: 02/25/2024 1:47 PM COMPARISON: None CLINICAL INDICATION: Female, 73 years old with history of PAIN IN LEFT HAND, , FINDINGS: Previous volar plate and screw fixation distal radius. There appears to be some articular surface irr egularity along the lunate bone at the scapholunate joint. Moderate degenerative change first CMC and triscaphe joints. Severe degenerative change second and third DIP joints and moderate to severe at t he second and third PIP joints. Mild to moderate within the fourth and fifth fingers. No acute fractu re, subluxation, dislocation seen. IMPRESSION: 1. Moderate osteoarthritic change of the base of the thumb. Severe at the second and third DIP joints . Moderate elsewhere throughout the fingers. 2. Previous volar plate and screw fixation distal radius. Mild soft tissue swelling. 3. Possible focal osteoarthritic change radiolunate joint. If symptoms localize here, consider more d etailed assessment with radiographs of the wrist. [facility], , 02/25/2024 2:03 PM
== END | disposition home or self-care (01) ==
LOC: RADXRMAIN 13:22
PROVIDERS: ATTEND Nurse Practitioner Family
DX: M18.12 Unilateral primary osteoarthritis of first carpometacarpal joint, left hand (principal); T84.122A Displacement of internal fixation device of bone of right forearm, initial encounter

== ENCOUNTER → 2024-03-09 | Outpatient (CLI) | payer MEDICARE ==
--- NOTE | 2024-03-13 22:33 | BD ---
EXAMINATION TYPE: Axial Bone Density DATE OF EXAM: 03/09/2024 CLINICAL HISTORY: 73 years old Female. ICD-10 CODE: Z78.0 POST MENOPAUSAL , Additional History: Height: 61 Weight: 235 FRAX RISK QUESTIONS: Family History (Parent hip fracture): no History of Fracture in Adulthood: yes Secondary Osteoporosis: yes 3. Menopause before 45: yes RISK FACTORS HISTORY OF: History of Left Wrist Fracture: yes When: 2019 Surgery to Wrist (left): yes When: 2019 MEDICATIONS: Thyroid Medications: no Osteoporosis Medications: no EXAM MEASUREMENTS: Bone mineral densitometry was performed using the [id number] System. Bone mineral density as measured about the Lumbar spine is: ----- L1-L4(G/cm2): 1.021 T Score Values are as follows: ----- L1: -2.2 ----- L2: -1.9 ----- L3: -0.9 ----- L4: -0.9 ----- L1-L4: -1.3 Z Score Values are as follows: ----- L1: -1.6 ----- L2: -1.3 ----- L3: -0.3 ----- L4: -0.3 ----- L1-L4: -0.8 Bone mineral density baseline Bone mineral density about the R hip (g/cm2): 0.911 Bone mineral density about the L hip (g/cm2): 0.897 T Score values are as follows: -----R Neck: -1.6 -----L Neck: -1.7 -----R Total: -0.8 -----L Total: -0.9 Z Score values are as follows: -----R Neck: -0.6 -----L Neck: -0.6 -----R Total: 0.0 -----L Total: -0.1 Bone mineral density baseline FRAX%s: The graph provided illustrates a 14.7% chance for a major osteoporotic fx and a 2.3% chance f or the hips probability for fx in 10 years time. IMPRESSION: Osteopenia (T Score between -2.5 and -1). There is slightly increased risk of fracture and the patient may be considered for treatment. Re-Screen 2-5 years. NOTE: T-SCORE=SD OF THE YOUNG ADULT MEAN. [facility], , 03/13/2024 10:31 PM
== END | disposition home or self-care (01) ==
LOC: RADBDWWP 13:29
PROVIDERS: ATTEND Family Medicine
DX: M85.89 Other specified disorders of bone density and structure, multiple sites (principal); Z78.0 Asymptomatic menopausal state
CPT/HCPCS: 77080

== ENCOUNTER → 2024-06-21 | Outpatient (CLI) | payer MEDICARE ==
--- NOTE | 2024-06-21 14:39 | MM ---
Reason for Exam: Screening (asymptomatic). Last screening mammogram was performed 12 month(s) ago. Patient History: Menarche at age 12. Patient has no children. Left ovary removed at age 34. Right ovary removed at age 34. Hysterectomy at age 34. Postmenopausal. Other cancer, age 64. Core Biopsy on the Right side. 02/18/2002, Benign Stereotactic Core Biopsy on the right side. Risk Values: Lindy 5 year model risk: 3.2%. NCI Lifetime model risk: 8.3%. Prior Study Comparison: 05/13/2021 Bilateral Screening Mammogram, [facility]. 06/09/2022 Bilateral MG 3D screening mammo w/cad, [facility]. 06/10/2023 Bilateral MG 3D screening mammo w/cad, [facility]. Tissue Density: The breasts are heterogeneously dense, which may obscure small masses. Findings: Analyzed By CAD. Right breast: There is no suspicious group of microcalcifications or new suspicious mass. Benign-appearing calcifications right breast. Left breast: There is no suspicious group of microcalcifications or new suspicious mass. Benign-appearing calcifications left breast. Overall Assessment: Benign, BI-RAD 2 Management: Screening Mammogram of both breasts in [address] [facility] will attempt to contact patient to return for supplemental views and ultrasound if indicated. Patient should continue monthly self-breast exams. A clinical breast exam by your physician is recommended on an annual basis. This exam should not preclude additional follow-up of suspicious palpable abnormalities. Note on Lindy scores and lifetime risk: 1. A Lindy score greater than 3% is considered moderate risk. If this is the case, consider specialist referral to assess eligibility for a risk reducing agent. 2. If overall lifetime risk for the development of breast cancer is 20% or higher, the patient may qualify for future screening with alternating mammogram and breast MRI. [facility], , 06/21/2024 2:37 PM. Electronically signed and approved by: Logan Strange DO
== END | disposition home or self-care (01) ==
LOC: RADMAMWWP 14:22
PROVIDERS: ATTEND Family Medicine
DX: Z12.31 Encounter for screening mammogram for malignant neoplasm of breast (principal); R92.333 Mammographic heterogeneous density, bilateral breasts; R92.1 Mammographic calcification found on diagnostic imaging of breast; Z78.0 Asymptomatic menopausal state
CPT/HCPCS: 77063; 77067